=== PATIENT | male | born 1995 | race Caucasian/White ===

== ENCOUNTER 2018-12-10 22:59 | Emergency (ER) | payer SELFPAY ==
[~2018-12-10] VITALS: Ht 167.6 cm; Wt 77.1 kg
[2018-12-10 23:03] VITALS: BP 132/80
--- NOTE | 2018-12-10 23:03 | NUR ---
TO BED # 08 AMBULATORY, REPORT GIVEN TO MISA CROOK
--- NOTE | 2018-12-10 23:05 | NUR ---
PT TAKEN TO BED 7
--- NOTE | 2018-12-10 23:22 | NUR ---
PT TO ED WITH C/O L SHOULDER PAIN INCREASING OVER 5 DAYS. PT DENIES INJURY OR TRAUMA. NO OBVIOUS DEOFMIRTY NOTED. PT HAS FULL ROM OF L SHOULDER. CMS INTACT. PULSES PRESENT AND EQUAL. PT PLACED INTO BED, PENDING MD RUSH.
[2018-12-10] MEDS ORDERED: KETOROLAC 30 MG/ML VIAL IM ONE (23:30)
--- NOTE | 2018-12-10 23:41 | NUR ---
X-Ray at bedside.
--- NOTE | 2018-12-11 00:01 | NUR ---
PT REPORTS RELIED OF PAIN S/P TORADOL ADMIN. ER MD NOTIFIED.
[2018-12-11 00:03] VITALS: BP 127/69
--- NOTE | 2018-12-11 00:48 | NUR ---
LATE ENTRY- CALL MADE TO INFORM PT OF XRAY RESULTS AND THE NEED FOR FOLLOWUP OUTPATIENT CT SCAN, PER DR HERNANDEZ. PT VERBALIZED UNDERSTANDING AND HAD NO FURTHER QUESTIONS. ER MD HERNANDEZ MADE AWARE.
== END 2018-12-11 00:04 | disposition home or self-care (01) ==
LOC: MED 22:59
DX: R07.89 Other chest pain (principal); M25.512 Pain in left shoulder
CPT/HCPCS: 71045; 73030; 96372; 99283; J1885

== ENCOUNTER 2019-08-11 21:20 | Emergency (ER) | payer SELFPAY ==
[~2019-08-11] VITALS: Ht 177.8 cm; Wt 87.5 kg
[2019-08-11 21:20] VITALS: BP 151/90
--- NOTE | 2019-08-11 21:20 | NUR ---
TO BED # 11 VIA WHEELCHAIR
--- NOTE | 2019-08-11 21:38 | NUR ---
23/M C/O COLD SYMPTOMS AND PLEURITIC CP X 5 DAYS WITH BODY ACHES. HE TOOK XL-3 FOR COLDS AND COUGH AT 1600HOURS. STATES SORE THROAT, COUGH, F/C. DENIES FLU VACCINATION THIS YEAR. HX- HTN RX- NONE Addendum: 08/11/19 at 2140 by ERIK LIPS DRY.
[2019-08-11] MEDS ORDERED: ACETAMINOPHEN EXTRA STRENGTH 500 MG TAB PO ONE (22:05)
[2019-08-11] MEDS ORDERED: KETOROLAC 60 MG/2 ML VIAL IM ONE (22:55)
--- NOTE | 2019-08-11 23:05 | NUR ---
ORAL TEMP 99.0 AT THIS TIME
[2019-08-11 23:14] VITALS: BP 137/84
--- NOTE | 2019-08-11 23:14 | NUR ---
Patient discharged with v/s stable. Written and verbal after care instructions given and explained. Patient alert, oriented and verbalized understanding of instructions. Ambulatory with steady gait. All questions addressed prior to discharge. ID band removed. Patient advised to follow up with PMD. Rx of PROMETHAZINE DM, MOTRIN, AND TAMIFLU given. Patient educated on indication of medication including possible reaction and side effects. Opportunity to ask questions provided and answered.
== END 2019-08-11 23:14 | disposition home or self-care (01) ==
LOC: MED 21:20
DX: J11.1 Influenza due to unidentified influenza virus with other respiratory manifestations (principal); I10 Essential (primary) hypertension; Z88.0 Allergy status to penicillin
CPT/HCPCS: 93005; 96372; 99283; J1885